=== PATIENT | female | born 1995 | race Caucasian/White ===

== ENCOUNTER 2020-12-07 11:00 | Day surgery (SDC) | payer OTHER | END 2020-12-07 16:20 | disposition home or self-care (01) | LOC: CIR.AMB 11:00 | PROVIDERS: ATTEND Obstetrics & Gynecology | DX: N93.8 Other specified abnormal uterine and vaginal bleeding (principal); Z20.822 Contact with and (suspected) exposure to COVID-19 ==

== ENCOUNTER 2022-12-11 13:21 | Outpatient (CLI) | payer OTHER | END 2022-12-11 14:38 | disposition home or self-care (01) | LOC: PRENATAL 13:21 | PROVIDERS: ATTEND Obstetrics & Gynecology Maternal & Fetal Medicine | DX: O36.80X0 Pregnancy with inconclusive fetal viability, not applicable or unspecified (principal); Z14.8 Genetic carrier of other disease; Z3A.12 12 weeks gestation of pregnancy ==

== ENCOUNTER 2023-01-30 08:25 | Outpatient (CLI) | payer OTHER | END 2023-01-30 09:45 | disposition home or self-care (01) | LOC: PRENATAL 08:25 | PROVIDERS: ATTEND Obstetrics & Gynecology Maternal & Fetal Medicine | DX: O35.9XX0 Maternal care for (suspected) fetal abnormality and damage, unspecified, not applicable or unspecified (principal); O35.3XX0 Maternal care for (suspected) damage to fetus from viral disease in mother, not applicable or unspecified; O26.879 Cervical shortening, unspecified trimester; Z3A.19 19 weeks gestation of pregnancy ==

== ENCOUNTER 2023-02-05 19:08 | Outpatient (CLI) | payer OTHER ==
[2023-02-05] MEDS ORDERED: PRENATAL TABLE1 EAC1 PO (19:14)
[2023-02-05] MEDS ORDERED: FOLIC ACID20 MG PO (19:15)
== END 2023-02-06 11:57 | disposition home or self-care (01) ==
LOC: OBS/DEL 19:08
PROVIDERS: ATTEND Obstetrics & Gynecology
DX: O98.812 Other maternal infectious and parasitic diseases complicating pregnancy, second trimester (principal); Z3A.20 20 weeks gestation of pregnancy

== ENCOUNTER 2023-04-03 09:41 | Outpatient (CLI) | payer OTHER ==
[~2023-04-03 09:41] MED LIST: FOLIC ACID20 MG PO; PRENATAL TABLE1 EAC1 PO
== END 2023-04-03 10:40 | disposition home or self-care (01) ==
LOC: PRENATAL 09:41
PROVIDERS: ATTEND Obstetrics & Gynecology Maternal & Fetal Medicine
DX: O26.849 Uterine size-date discrepancy, unspecified trimester (principal); O26.879 Cervical shortening, unspecified trimester; Z3A.28 28 weeks gestation of pregnancy

== ENCOUNTER 2023-05-15 09:09 | Outpatient (CLI) | payer OTHER | END 2023-05-15 10:12 | disposition home or self-care (01) | LOC: PRENATAL 09:09 | PROVIDERS: ATTEND Obstetrics & Gynecology Maternal & Fetal Medicine | DX: O26.849 Uterine size-date discrepancy, unspecified trimester (principal); O36.8199 Decreased fetal movements, unspecified trimester, other fetus; O43.90 Unspecified placental disorder, unspecified trimester; Z3A.34 34 weeks gestation of pregnancy ==